=== PATIENT | female | born 1995 | race Caucasian/White ===

== ENCOUNTER 2025-05-30 21:44 | Emergency (ER) | payer MEDICAID, SELFPAY ==
--- NOTE | ~2025-05-30 | XR_ITS ---
CLINICAL HISTORY: fall 3 view right ankle Comparison: None provided Findings: No acute fractures. Ankle mortise intact. Moderate lateral soft tissue swelling. No ankle effusion. No radiopaque foreign body. IMPRESSION: 1. Lateral soft tissue swelling. No acute osseous abnormality. This document has been electronically signed by: Tee Oliver MD, PHD on 05/31/2025 00:06:57
[2025-05-30 21:47] VITALS: BP 143/68; PULSE 98; RESP 20; TEMP 37.1; O2SAT 98; BMI 29.7
--- NOTE | 2025-05-30 21:54 | PC.NURSE ---
this rn spoke with MD Butler, verbal order for ankle xray placed at this time, pt agreeable to plan of care at this time.
--- OUTSIDE RECORDS SUMMARY | 2025-05-30 22:43 | XMS_ITS | Clinical Summary ---
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 Oversize Load Pilot Escort: Leroy Bender MD METAL FURNITURE ASSEMBLY SUPERVISOR Cytology Report FINAL DIAGNOSIS A. PAP SMEAR (THIN PREP) CE: SPECIMEN ADEQUACY: Satisfactory for evaluation; transformation zone absent/insufficient. INTERPRETATION: NEGATIVE FOR INTRAEPITHELIAL LESION OR MALIGNANCY. This specimen was analyzed by the automated ThinPrep Imaging System ([employer] and the selected henry were reviewed by a director of instructional technology. Electronically Signed Out By: BIRD Costello(ASCP) The Pap test is a screening test primarily for squamous cancers and precursors and has associated false-negative and false-positive results. New technologies such as liquid-based preparations may decrease but will not eliminate all false-negative results. Regular sampling and follow-up of unexplained clinical signs and symptoms are recommended to minimize false negative results. PROCEDURES/ADDENDA HPV Testing (Requested) Ordered Date: 04/19/2025 A. PAP SMEAR (THIN PREP) CE: High-risk HPV Panel w/ extended genotyping NEG HPV 16-NEG HPV 18-NEG HPV 45-NEG HPV 33/58-NEG HPV 31-NEG HPV 56/59/66-NEG HPV 51-NEG HPV 52-NEG HPV 35/39/68-NEG Performed by real-time polymerase chain reaction (PCR) at [address] using the FDA-approved BD Onclarity HPV Assay with extended genotyping. Uses of the assay in scenarios other than those approved by the FDA should be considered off-label use. The accuracy and precision of this test for all other off-label specimen sources has been verified in the Cytopathology Laboratory of the [facility] and has not been cleared or approved by the U.S. Food and Drug Administration. Clinical correlation is advised. The assay assesses the E6/E7 DNA target and utilizes human beta globin as an internal control. Cytology and HPV testing are screening assays and should not be used as the sole means of detecting cancer. False-positives and false-negatives can occur. CLINICAL HISTORY Date of Last Menstrual Period: Not Provided Menstrual History: Infection History: Viktoria: 2021 Other Clinical Conditions: Screening Pap SPECIMEN SOURCE A: PAP SMEAR (THIN PREP) CE Patient Name: MELODY EVANS : 1995 (Age: 29) Sex: F Institution: [facility] Location: [facility] Date of Collection: 04/18/2025 Date of Reported: 04/25/2025 10:32 Results to: Sabiha Cohen CNM us Sabiha Cohen CNM CYTOLOGY ORDERABLES Final Resul t Performing Organization Address City/[facility] Co de Phone Number SEE NARRATIVE * Screen (03/21/2025 1:40 PM EDT) ABO/Rh A Negative [facility] Antibody Screen Negative [facility] Resulting Agency [facility] Blood 03/21/2025 1:40 PM EDT 03/21/2025 1:53 PM EDT Laurita Blake CNM BLOOD BANK TEST ORD ERABLES Final Result Performing Organization Address [facility] de Phone Number [address] [address] * (ABNORMAL) Rubella antibody, IgG (03/21/2025 1:40 PM EDT) Rubella Ab, IgG Negative(A ) Positive [facility] Blood (Blood) 03/21/2025 1:4 0 PM EDT 03/21/2025 1:53 PM EDT Laurita Blake CNM NON CULTURE MICROBI OLOGY Final Result Performing Organization Address [facility] Co de Phone Number [address] [address] * (ABNORMAL) Varicella-zoster (VZV) antibody, IgG (03/21/2025 1:40 PM EDT) Varicella Ab(s) Negative(A ) Positive [facility] Blood (Blood) 03/21/2025 1:4 0 PM EDT 03/21/2025 1:53 PM EDT Laurita SWANSON NON CULTURE MICROBI OLOGY Final Result Performing Organization Address City/[facility]/ZIP Co de Phone Number [address] [address] * HIV-1/2 antigen/antibody (03/21/2025 1:40 PM EDT) Pathologist [facility] HIV-1/2 Antigen/Antibo dy NON-REACTI VE NON-REACTI VE [facility] Blood 03/21/2025 1:40 PM EDT 03/21/2025 1:53 PM EDT Laurita Blake CNM LAB BLOOD ORDERABLE S Final Result Performing Organization Address [facility]/ZIP Co de Phone Number [address] [address] * Hepatitis C antibody, qualitative (03/21/2025 1:40 PM EDT) HCV NON-REACTIV E NON-REACTI VE [facility] Blood 03/21/2025 1:40 PM EDT 03/21/2025 1:53 PM EDT Laurita Blake CNM LAB BLOOD ORDERABLE S Final Result Performing Organization Address [facility]/ZIP Co de Phone Number [address] [address] * Syphilis antibody screen (03/21/2025 1:40 PM EDT) RPR NON-REACTIV E NON-REACTI VE [facility] Blood 03/21/2025 1:40 PM EDT 03/21/2025 1:53 PM EDT Laurita Makedanoemy Blake [facility] [facility] [employer] LAB BLOOD ORDERABLE S Final Result [address] [address] * Hepatitis B surface antigen (03/21/2025 1:40 PM EDT) HBV SURFACE ANTIGEN NON-REACTI VE NON-REACTI VE [facility] Blood 03/21/2025 1:40 PM EDT 03/21/2025 1:53 PM EDT Laurita Makeda Blake [facility] LAB BLOOD ORDERABLE S Final Result Performing Organization Address City/[facility]/ZIP Co de Phone Number [address] [address] * CBC (03/21/2025 1:40 PM EDT) WBC 5.47 4.00 - 11.00 K/uL [facility] RBC 4.49 4.00 - 5.20 M/uL [facility] HGB 13.4 12.0 - 16.0 g/dL [facility] HCT 39.6 36.0 - 46.0 % [facility] PLT 171 150 - 450 K/uL [facility] MCV 88.2 80.0 - 100.0 [facility] MCH 29.8 27.0 - 31.0 pg [facility] MCHC 33.8 32.0 - 36.0 g/dL [facility] RDW 12.9 11.5 - 14.5 % [facility] MPV 10.4 8.4 - 12.0 fL [facility] NRBC 0.00 0.00 /100 WBCs [facility] ABSOLUTE NRBC 0.00 0.00 K/uL [facility] Blood 03/21/2025 1:40 PM EDT 03/21/2025 1:53 PM EDT us Laurita SWANSON LAB BLOOD ORDERABLE S Final Result Performing Organization Address City/[facility]/ZIP Co de Phone Number [address] [address] * LFTs (hepatic panel) (03/17/2025 8:06 PM EDT) ALKALINE PHOSPHATASE 51 39 - 117 U/L [facility] TOTAL BILIRUBIN 0.9 0.0 - 1.2 mg/dL [facility] DIRECT BILIRUBIN 0.2 0.0 - 0.2 mg/dL [facility] Bilirubin (Indirect) 0.7 0 - 1.5 mg/dL [facility] AST 16 0 - 37 U/L [facility] ALT 29 0 - 40 U/L [facility] TOTAL PROTEIN 6.9 6.5 - 8.0 g/dL [facility] ALBUMIN 4.2 3.9 - 4.8 g/dL [facility] GLOBULIN 2.7 1 - 4.8 g/dL [facility] A/G Ratio 1.56 1.00 - 4.80 RATIO [facility] Blood 03/17/2025 8:06 PM EDT 03/17/2025 8:10 PM EDT us Tim Juárez MD LAB BLOOD ORDERAB LES Final Result Performing Organization Address City/[facility]/ZIP Co de Phone Number [address] [address] * (ABNORMAL) CBC and differential (03/17/2025 8:06 PM EDT) WBC 9.28 4.00 - 11.00 K/uL [facility] RBC 4.57 4.00 - 5.20 M/uL [facility] HGB 13.6 12.0 - 16.0 g/dL [facility] HCT 40.1 36.0 - 46.0 % [facility] PLT 182 150 - 450 K/uL [facility] MCV 87.7 80.0 - 100.0 fL [facility] MCH 29.8 27.0 - 31.0 pg [facility] MCHC 33.9 32.0 - 36.0 g/dL [facility] RDW 12.9 11.5 - 14.5 % [facility] MPV 10.1 8.4 - 12.0 [facility] NRBC 0.00 0.00 /100 WBCs [facility] ABSOLUTE NRBC 0.00 0.00 K/uL [facility] DIFF METHOD Auto [facility] NEUTS 80.9(H) 48.0 - 76.0 % [facility] LYMPHS 14.4(L) 18.0 - 41.0 % [facility] MONOS 4.1 4.0 - 11.0 % [facility] EOS 0.1 0.0 - 5.0 % [facility] BASOS 0.3 0.0 - 1.5 % [facility] Granulocytes, immature (%) 0.2 0.0 - 0.9 % [facility] ABSOLUTE NEUTS 7.50 1.92 - 7.60 K/uL [facility] ABSOLUTE LYMPHS 1.34 0.72 - 4.10 K/uL [facility] ABSOLUTE MONOS 0.38 0.16 - 1.10 K/uL [facility] ABSOLUTE EOS 0.01 0.00 - 0.50 K/uL [facility] ABSOLUTE BASOS 0.03 0.00 - 0.15 K/uL [facility] Granulocytes, immature 0.02 0.00 - 0.09 K/uL [facility] Blood 03/17/2025 8:06 PM EDT 03/17/2025 8:10 PM EDT us Tim Juárez MD LAB BLOOD ORDERAB LES Final Result [facility] [address] [place] [address] * (ABNORMAL) Basic metabolic panel (03/17/2025 8:06 PM EDT) SODIUM 134 133 - 146 mmol/L [facility] CHLORIDE 102 96 - 108 mmol/L [facility] POTASSIUM 3.9 3.3 - 5.1 mmol/L [facility] Comment:Specimen slightly he molyzed, result may be falsely elevated. CO2 21 21 - 35 mmol/L [facility] BUN 6 6 - 19 mg/dL [facility] CREATININE 0.40(L) 0.5 - 1.5 mg/dL [facility] GLUCOSE 109(H) 70 - 99 mg/dL [facility] CALCIUM 9.5 8.4 - 10.3 mg/dL [facility] EGFR >120 >59 mL/min/1.7 3m2 [facility] Comment:Estimated glomerular filtration rate calculated using the CKD-EPI refit equation. ANION GAP 15 10 - 20 mmol/L [facility] Blood 03/17/2025 8:06 PM EDT 03/17/2025 8:10 PM EDT Tim Juárez MD LAB BLOOD ORDERAB LES Final Result Performing Organization Address [facility]/ZIP Co de Phone Number [address] [address] * (ABNORMAL) Urinalysis w/reflex Urine Culture (03/17/2025 7:25 PM EDT) COLOR Yellow Yellow [facility] CLARITY Clear [facility] GLUCOSE Negative Negative [facility] BILI Negative Negative [facility] KETONES Trace(A) Negative [facility] SPECIFIC GRAVITY 1.010 1.005 - 1.030 [facility] BLOOD Negative Negative [facility] PH 7.0 5.0 - 8.0 [facility] Protein-UA Negative Negative [facility] NITRITE Negative Negative [facility] Leukocyte esterase, ur Negative Negative [facility] Urine (Urine) 03/17/2025 7:2 5 PM EDT 03/17/2025 7:28 PM EDT Tim Juárez MD URINE ORDERABLES Final Result Performing Organization Address [facility]/ZIP Co de Phone Number [address] [address] * (ABNORMAL) HCG, urine (03/17/2025 7:25 PM EDT) URINE TEST Positive(A ) Negative [facility] Urine (Urine) 03/17/2025 7:2 5 PM EDT 03/17/2025 7:28 PM EDT Tim Juárez MD URINE ORDERABLES Final Result [facility] [address] [place] [address] * ECG 12-LEAD (03/17/2025 5:02 PM EDT) Ventricular Rate EKG/MIN 66 BPM [facility] Atrial Rate 66 BPM [facility] PA Interval 120 ms [facility] QRS Duration 96 ms [facility] QT Interval 424 ms [facility] QTC Interval 444 ms [facility] P [place] 34 degrees [facility] R Wave [place] 18 degrees [facility] T Wave [place] 5 degrees [facility] 03/17/2025 5:02 PM EDT 03/18/2025 10:08 AM EDT Narrative [facility] - 03/18/2025 10:08 AM EDT Normal sinus rhythm with sinus arrhythmia Low voltage QRS Cannot rule out Anterior infarct , age undetermined Abnormal ECG When compared with ECG of 16-Jul-2023 19:58, T wave inversion now evident in Inferior leads Nonspecific T wave abnormality no longer evident in Anterior leads Confirmed by Edgar Schultz ([id number]) on 03/18/2025 10:08:42 AM us Tim Juárez MD ECG ORDERABLES F inal Result [facility] * Chlamydia trachomatis and Neisseria gonorrhoeae Nucleic Acid Amplification (03/07/2025 11:17 AM EDT) CHLAMYDIA TRACHOMATIS Not Detected Not Detected [facility] NEISERIA GONORRHOEAE Not Detected Not Detected [facility] SPECIMEN TYPE URINE [facility] Urine (Urine) 03/07/2025 11: 17 AM EDT 03/07/2025 3:13 PM EDT us Laurita Ashford Blake CNM NON CULTURE MICROBI OLOGY Final Result [facility] [address] [place] [address] * US OB LESS THAN 14 WEEKS TRANSABDOMINAL (03/07/2025 10:28 AM EDT) Anatomical Region Laterality Modality Abdomen, Pelvis, Uterus/Adnexa U ltrasound 03/07/2025 10:2 9 AM EDT Impressions 03/07/2025 8:13 PM EDT 1. This is a Di/Di twin with CRL measurements consistent with menstrual dating. 2. There is a 4.5 cm right fundal fibroid. 3. The ovaries appear grossly normal. Narrative 03/07/2025 8:13 PM EDT Procedure: US OB LESS THAN 14 WEEKS TRANSABDOMINAL 03/07/2025 10:15 AM US Indications: dating / viability. Comparison: No relevant recent comparisons. Maternal age: 29 years. Technique: Transabdominal scan was performed. Color Doppler and M-mode imaging was performed to assess vascularity. FINDINGS: Type of twin : Dichorionic Diamniotic Twins Reported LMP: Approx 01/09/2025 Fetus 1: FHR: 156.0 bpm CRL: 1.19 cm Gestational Age by LMP: 8 weeks 1 day(s) Ultrasound EGA: 7 weeks 3 day(s) Ultrasound MARY: [id number] Established MARY: [id number] Fetus 2: FHR: 152.0bpm CRL: 1.25 cm Gestational Age by LMP: 8 weeks 1 day(s) Ultrasound EGA: 7 weeks 3 day(s) Ultrasound MARY: [id number] Established MARY: [id number] Overies: Rt Ovary: Appears grossly normal. Adnexa: No masses seen. Lt. Ovary: Appears grossly normal. Adnexa: No masses seen. Tech Comments: Live twin dating 7w 3d. Gest sac A subjectively smaller than B. CRL and FHR wnl x2. Fundal right fibroid 4.5 x 3.2 x 3.8 cm. Procedure Note Miguel Ángel Henao MD - 03/07/2025 Procedure: US OB LESS THAN 14 WEEKS TRANSABDOMINAL 03/07/2025 10:15 AM US Indications: dating / viability. Comparison: No relevant recent comparisons. Maternal age: 29 years. Technique: Transabdominal scan was performed. Color Doppler and M-modeimaging was performed to assess vascularity. FINDINGS: Type of twin : Dichorionic Diamniotic Twins Reported LMP: Approx 01/09/2025 Fetus 1: FHR: 156.0 bpm CRL: 1.19 cm Gestational Age by LMP: 8 weeks 1 day(s) Ultrasound EGA: 7 weeks 3 day(s) Ultrasound MARY: [id number] Established MARY: [id number] Fetus 2: FHR: 152.0bpm CRL: 1.25 cm Gestational Age by LMP: 8 weeks 1 day(s) Ultrasound EGA: 7 weeks 3 day(s) Ultrasound MARY: [id number] Established MARY: [id number] Overies: Rt Ovary: Appears grossly normal. Adnexa: No masses seen. Lt. Ovary: Appears grossly normal. Adnexa: No masses seen. Tech Comments: Live twin dating 7w 3d. Gest sac A subjectively smaller than B.CRL and FHR wnl x2. Fundal right fibroid 4.5 x 3.2 x 3.8 cm. IMPRESSION: 1. This is a Di/Di twin with CRL measurements consistent withmenstrual dating. 2. There is a 4.5 cm right fundal fibroid. 3. The ovaries appear grossly normal. Laurita SWANSON IMG US OBSTETRIC Fi nal Result from Last 3 Months Insurance ACO P ACO ACO ACO ACO Advance Directives For more information, please contact: [phone] (9AM - 5PM [facility], Wednesday-Wednesday) Documents on File Type Date Recorded Patient Computer Repair Engineer Expl anation Healthcare Proxy 11/22/2019 11:58 AM * Full Code (Presumed) (Latest Code Status on File) Date Activated Date Inactivated Comments 11/18/2019 10:42 PM 11/20/2019 11:59 PM * Full Code (Presumed) Date Activated Date Inactivated Comments 11/17/2019 8:45 PM 11/18/2019 10:42 PM Care Teams Fine Grade Bulldozer Operator Relationship Specialty Start Date End Date Marvel Roach PA [address] [place] [phone] [email or web address] PCP - General Physician International Representative 07/16/23 Additional Source Comments The information contained in this document represents components of the legal health record. It is not the complete legal health record.[facility]
--- OUTSIDE RECORDS SUMMARY | 2025-05-30 22:43 | XMS_ITS | Encounter Summary ---
Author Organization [facility] Address [address] [place] [address] Phone Care Team Providers Care Plasterer Apprentice Name Role Phone Unknown, Unknown Primary Care Provider Dillon Becker Primary Care Provider [phone] Mike Graham MD Unavailable [phone] Dm Limon MD Unavailable [phone] Mahendra Hwang MD Unavailable [phone] Ayla Richey MD Unavailable [phone] Marvel Roach Primary Care Provider [phone] Encounter Details Date Type Department Care Team (Latest Contact Info) Description 05/19/2019 Transcribe Orders Virtual Department [address] [place] [phone] Ismael Paulino MD [address] [place] [address], [address] [place], [place] [phone] [email or web address] Visual loss (Primary Dx); Migraine without status migrainosus, not intractable, unspecified migraine type Social History Tobacco Use Types Packs/Day Years Used Date Smoking Tobacco: Never Smokeless Tobacco: Never Alcohol Use Standard Drinks/Week Comments Not Currently 0 (1 standard drink = 0.6 oz pur e alcohol) Comments Unknown Sex and Gender Information Value Date Recorded Sex Assigned at Female 04/12/2019 6:30 PM EDT Legal Sex Female 8:56 PM EDT Gender Identity Female 04/12/2019 6:30 PM EDT Sexual Orientation Straight 04/12/2019 6: 30 PM EDT documented as of this encounter Plan of Treatment Upcoming Encounters Date Type Department Care Team (Late st Contact Info) Description 06/11/2025 1:30 PM EDT Appointment [facility], Mfm Ultrasound - [address] [address] Sabiha Cohen, [address] [address] [email or web address] 06/11/2025 3:30 PM EDT Routine [facility] [address] [place] [phone] Sabiha Petersen, [address] [address] [email or web address] documented as of this encounter Visit Diagnoses Diagnosis Visual loss- Primary Unspecified visual loss Migraine without status migrainosus, not intractable, unspecified migraine type documented in this encounter Additional Health Concerns Infection Onset Date Last Indicated Resolved Time CoV-Risk 05/02/2021 05/06/2021 05/12/2021 1:25 AM EDT documented as of this encounter Care Teams Plasterer Apprentice Relationship Specialty Start Date End Date Unknown, Unknown, PCP - General 04/12/19 06/05/19 Dillon Jackson PA [address] [place] [phone] [email or web address] [email or web address] - General Unknown Provider Specialty 06/06/19 07/15/23 Marvel Roach PA [address] [place] [phone] [email or web address] PCP - General Physician Instrument Engineer 07/16/23 Mike Graham MD [address] [place] [address] [email or web address] Insurance Assigned Provider 09/02/19 03/02/20 Dm Limon MD [address] [place] [id number] [email or web address] Insurance Assigned Provider 03/02/20 08/02/21 Mahendra Hwang MD [address] [place] [address] [email or web address] Insurance Assigned Provider 08/02/21 11/02/21 Ayla Richey MD [address] [place] [phone] [email or web address] Insurance Assigned Provider 11/02/21 06/05/23 documented as of this encounter Additional Source Comments The information contained in this document represents components of the legal health record. It is not the complete legal health record.[facility]
--- OUTSIDE RECORDS SUMMARY | 2025-05-30 22:43 | XMS_ITS | Encounter Summary ---
Author Organization [facility] Address [address] [facility] [address] [place] [address] Phone Care Team Providers Care Magazine Supervisor Name Role Phone Dillon Jackson Primary Care Provider [phone] Mike Graham MD Unavailable [phone] Dm Limon MD Unavailable [phone] Mahendra Hwang MD Unavailable [phone] Ayla Richey MD Unavailable Marvel Roach Primary Care Provider [phone] Encounter Details Date Type Department Care Team (Late st Contact Info) Description 06/13/2019 Ancillary Orders [facility] [address] [place] [address] Terrie Mcfarland CNM [email or web address] Date of last menstrual period (LMP) unknown Social History Tobacco Use Types Packs/Day Years Used Date Smoking Tobacco: Never Smokeless Tobacco: Never Alcohol Use Standard Drinks/Week Comments Not Currently 0 (1 standard drink = 0.6 oz pur e alcohol) Comments Yes Sex and Gender Information Value Date Recorded Sex Assigned at Female 04/12/2019 6:30 PM EDT Legal Sex Female 8:56 PM EDT Gender Identity Female 04/12/2019 6:30 PM EDT Sexual Orientation Straight 04/12/2019 6: 30 PM EDT documented as of this encounter Plan of Treatment Upcoming Encounters Date Type Department Care Team (Late st Contact Info) Description 06/11/2025 1:30 PM EDT Appointment [facility], m Ultrasound - [address] [address] Sabiha Cohen, [address], [address] [place] [address] 06/11/2025 3:30 PM EDT Routine [facility] [address] [place] [address] Sabiha Petersen CN [address] [facility], [address] [place] [address] [email or web address] documented as of this encounter Results * US OB GREATER THAN OR EQUAL TO 14 WEEKS LIMITED (06/13/2019 4:04 PM EDT) Anatomical Region Laterality Modality Abdomen, Pelvis, Uterus/Adnexa O B Ultrasound 06/13/2019 4:10 PM EDT Impressions 06/13/2019 8:41 PM EDT Single live IUP with biometric measurements consistent with 15w5d and an MARY of November 30, 2019. Narrative 06/13/2019 8:41 PM EDT INDICATION: Dating, Irregular menses DATING: Exam Date: 2019-06-13 Last Menstruation: 2019-03-15 Estimated Delivery Date: 2019-12-20 Ultrasound Age: 15w5d Gestational Age by LMP: 12w6d Estimated Delivery by Ultrasound Age: 2019-11-30 ANATOMY SCAN: Biparietal Diameter: 3.19 cm 16w0d Hadlock Head Circumference: 11.81 cm 15w6d Hadlock Abdominal Circumference: 9.26 cm 15w3d Hadlock Femur Length: 1.62 cm 14w6d Hadlock Cerebellum: 1.45 cm 15w6d HC/AC Ratio: 1.28 FL/BPD Ratio: 51% FL/AC Ratio: 17% Estimated Weight: 4 oz Hadlock Heart Activity: Present Heart Rate: 147 bpm Presentation: Variable Amniotic Fluid: Normal Placenta: Posterior Placental Grade: 0 ANATOMY: Cerebellum: Seen Cisterna Magna: Seen Face: Seen Orbits/Lenses: Seen Profile: Seen Spine: Seen Stomach: Seen Cord Insertion: Seen Diaphragm: Seen Bladder: Seen 4 Chamber Heart: Limited Lower Extremities: Limited Upper Extremities: Limited Gender: Male MATERNAL STRUCTURES: Cervical Length: 3.24 cm TECH COMMENTS: Single live IUP. Size of fetus is approximately 3 weeks greater than dates by LMP. Active fetus with normal fluid. Grossly normal appearing ovaries bilaterally with no adnexal masses seen. Transabdominal scanning was performed. Procedure Note Miguel Ángel Henao MD - 06/13/2019 INDICATION: Dating, Irregular menses DATING: Exam Date: 2019-06-13 Last Menstruation: 2019-03-15 Estimated Delivery Date: 2019-12-20 Ultrasound Age: 15w5d Gestational Age by LMP: 12w6d Estimated Delivery by Ultrasound Age: 2019-11-30 ANATOMY SCAN: Biparietal Diameter: 3.19 cm 16w0d Hadlock Head Circumference: 11.81 cm 15w6d Hadlock Abdominal Circumference: 9.26 cm 15w3d Hadlock Femur Length: 1.62 cm 14w6d Hadlock Cerebellum: 1.45 cm 15w6d HC/AC Ratio: 1.28 FL/BPD Ratio: 51% FL/AC Ratio: 17% Estimated Weight: 4 oz Hadlock Heart Activity: Present Heart Rate: 147 bpm Presentation: Variable Amniotic Fluid: Normal Placenta: Posterior Placental Grade: 0 ANATOMY: Cerebellum: Seen Cisterna Magna: Seen Face: Seen Orbits/Lenses: Seen Profile: Seen Spine: Seen Stomach: Seen Cord Insertion: Seen Diaphragm: Seen Bladder: Seen 4 Chamber Heart: Limited Lower Extremities: Limited Upper Extremities: Limited Gender: Male MATERNAL STRUCTURES: Cervical Length: 3.24 cm TECH COMMENTS: Single live IUP. Size of fetus is approximately 3 weeks greater than datesby LMP. Active fetus with normal fluid. Grossly normal appearing ovariesbilaterally with no adnexal masses seen. Transabdominal scanning was performed. IMPRESSION: Single live IUP with biometric measurements consistent with 15w5d and anEDD of November 30, 2019. us Terrie Mcfarland CN IMG US OBSTETRIC Final Resul t documented in this encounter Visit Diagnoses Diagnosis Date of last menstrual period (LMP) unknown Date of last menstrual period (LMP) unknown documented in this encounter Additional Health Concerns Infection Onset Date Last Indicated Resolved Time CoV-Risk 05/02/2021 05/06/2021 05/12/2021 1:25 AM EDT documented as of this encounter Care Teams Magazine Supervisor Relationship Specialty Start Date End Date Dillon Jackson PA [address] [facility] [address] [place] [phone] [email or web address] - General Unknown Provider Specialty 06/06/19 07/15/23 Marvel Roach PA [address] [place] [phone] [email or web address] - General Physician Electric Dolly Operator 07/16/23 Mike Graham MD [address] [place] [address] [email or web address] Insurance Assigned Provider 09/02/19 03/02/20 Dm Limon MD [address] [place] [address] [email or web address] Insurance Assigned Provider 03/02/20 08/02/21 Mahendra Hwang MD [address] [place] [address] [email or web address] Insurance Assigned Provider 08/02/21 11/02/21 Ayla Richey MD [address] [place] [address] [email or web address] Insurance Assigned Provider 11/02/21 06/05/23 documented as of this encounter Additional Source Comments The information contained in this document represents components of the legal health record. It is not the complete legal health record.[facility]
--- OUTSIDE RECORDS SUMMARY | 2025-05-30 22:43 | XMS_ITS | Encounter Summary ---
Author Organization [facility] Address [address] [facility] [address] [place] [address] Phone Care Team Providers Care Station Supervisor Name Role Phone Dillon Jackson Primary Care Provider [phone] Dm Limon MD Unavailable [phone] Mahendra Hwang MD Unavailable [phone] Ayla Richey MD Unavailable [phone] Marvel Roach Primary Care Provider [phone] Encounter Details Date Type Department Care Team (Late st Contact Info) Description 05/03/2020 Procedure Pass [address] [place] [address] Social History Tobacco Use Types Packs/Day Years Used Date Smoking Tobacco: Never Smokeless Tobacco: Never Alcohol Use Standard Drinks/Week Comments Not Currently 0 (1 standard drink = 0.6 oz pur e alcohol) Comments No Sex and Gender Information Value Date Recorded Sex Assigned at Female 04/12/2019 6:30 PM EDT Legal Sex Female 8:56 PM EDT Gender Identity Female 04/12/2019 6:30 PM EDT Sexual Orientation Straight 04/12/2019 6: 30 PM EDT documented as of this encounter Plan of Treatment Upcoming Encounters Date Type Department Care Team (Late st Contact Info) Description 06/11/2025 1:30 PM EDT Appointment [facility], [address] [address] Sabiha Cohen, CN [address] [facility], [address] [place] [address] [email or web address] 06/11/2025 3:30 PM EDT Routine [facility] [address] [place] [address] Sabiha Petersen CN [address] [facility], [address] [address] [email or web address] documented as of this encounter Visit Diagnoses Not on filedocumented in this encounter Additional Health Concerns Infection Onset Date Last Indicated Resolved Time CoV-Risk 05/02/2021 05/06/2021 05/12/2021 1:25 AM EDT documented as of this encounter Care Teams Station Supervisor Relationship Specialty Start Date End Date Dillon Jackson PA [address] [place] [phone] [email or web address] - General Unknown Provider Specialty 06/06/19 07/15/23 Marvel Roach PA [address] [place] [phone] [email or web address] - General Physician Cable Television Program Director 07/16/23 Dm Limon MD [address] [place] [phone] [email or web address] Insurance Assigned Provider 03/02/20 08/02/21 Mahendra Hwang MD [address] [place] [address] [email or web address] Insurance Assigned Provider 08/02/21 11/02/21 Ayla Richey MD [facility] [place] [address] [email or web address] Assigned Provider 11/02/21 06/05/23 documented as of this encounter Additional Source Comments The information contained in this document represents components of the legal health record. It is not the complete legal health record.[facility]
--- OUTSIDE RECORDS SUMMARY | 2025-05-30 22:43 | XMS_ITS | Encounter Summary ---
Author Organization [facility] Address [address] [facility] [address] [place] [address] Phone Care Team Providers Care Information Technology Consultant Name Role Phone Dillon Jackson Primary Care Provider [phone] Dm Limon MD Unavailable [phone] Mahendra Hwang MD Unavailable [phone] Ayla Richey MD Unavailable Marvel Roach Primary Care Provider [phone] Reason for Referral * MRI/CAT Scan - Closed Specialty Diagnoses / Procedures Referred By Eric vasquez Referred To Contact Radiology Diagnoses Visual loss Migraine without status migrainosus, not intractable, unspecified migraine type Procedures MRI Brain Ismael Paulino MD Phone: tel: fax: [email or web address] Referral ID Status Reason Start Date Expiration Date Visits Re quested Visits Authorized [id number] Closed 04/16/2020 10/12/2020 1 1 Encounter Details Date Type Department Care Team (Latest Contact Info) Description 05/03/2020 Transcribe Orders Virtual Department [address] [place] [address] Ismael Paulino MD [address] [facility] [place] [address] [email or web address] Visual loss (Primary Dx); Migraine without [...] 1:30 PM EDT Appointment [facility], [address] [address] Sabiha Cohen [address] [address] [email or web address] 06/11/2025 3:30 PM EDT Routine [facility] Midwifery [address] [place] [address] Sabiha Petersen CNM [address] [place] [phone] [email or web address] documented as of this encounter Results * MRI BRAIN WITHOUT CONTRAST (05/13/2020 4:33 PM EDT) Anatomical Region Laterality Modality Head Magnetic Resonan ce 05/13/2020 4:58 PM EDT Impressions 05/13/2020 5:08 PM EDT No significant intracranial abnormalities. POS - [id number] Narrative 05/13/2020 5:08 PM EDT HISTORY: Chronic migraines more frequent on right than left. COMPARISON: None. TECHNIQUE: Exam performed on a 1.5 Elena high field MRI scanner. Sagittal and axial T1, axial FSE T2, T2 FLAIR, diffusion weighted and ADC map sequences were obtained. FINDINGS: No evidence of intracranial hemorrhage, hematoma or suspicious masses. Small negative cisterna magna in the posterior fossa, normal variant. Sanders-white matter differentiation is preserved. No signs of acute infarction. No suspicious white matter signal abnormalities. The ventricles are midline and do not appear dilated. The basal cisterns are patent. There are normal flow voids at the base of the skull. Visualized paranasal sinuses are essentially clear. Procedure Note Cecilio Garcia MD - 05/13/2020 HISTORY: Chronic migraines more frequent on right than left. COMPARISON: None. TECHNIQUE: Exam performed on a 1.5 Elena high field MRI scanner. Sagittaland axial T1, axial FSE T2, T2 FLAIR, diffusion weighted and ADC mapsequences were obtained. FINDINGS: No evidence of intracranial hemorrhage, hematoma or suspicious masses.Small negative cisterna magna in the posterior fossa, normal variant.Sanders-white matter differentiation is preserved. No signs of acuteinfarction. No suspicious white matter signal abnormalities. The ventricles are midline and do not appear dilated. The basal cisternsare patent. There are normal flow voids at the base of the skull. Visualized paranasal sinuses are essentially clear. IMPRESSION: No significant intracranial abnormalities. POS - [id number] Ismael Paulino MD IMG MR HEAD/NECK Final Resul t documented in this encounter Visit Diagnoses Diagnosis Visual loss- Primary Unspecified visual loss Migraine without status migrainosus, not intractable, unspecified migraine type Visual loss Unspecified visual loss Migraine without status migrainosus, not intractable, unspecified migraine type documented in this encounter Additional Health Concerns Infection Onset Date Last Indicated Resolved Time CoV-Risk 05/02/2021 05/06/2021 05/12/2021 1:25 AM EDT documented as of this encounter Care Teams Information Technology Consultant Relationship Specialty Start Date End Date Dillon Jackson PA [address] [place] [address] [email or web address] - General Unknown Provider Specialty 06/06/19 07/15/23 Marvel Roach PA [address] [place] [phone] [email or web address] - General Physician Machine Maintenance Mechanic 07/16/23 Dm Limon MD [address] [place] [phone] [email or web address] Insurance Assigned Provider 03/02/20 08/02/21 Mahendra Hwang MD [address] [place] [phone] [email or web address] Insurance Assigned Provider 08/02/21 11/02/21 Ayla Richey MD [address] [place] [phone] Insurance Assigned Provider 11/02/21 06/05/23 documented as of this encounter Additional Source Comments The information contained in this document represents components of the legal health record. It is not the complete legal health record.[facility]
--- NOTE | 2025-05-30 23:14 | ED_ITS ---
HPI - General Adult General Chief complaint: Extremity Injury, Lower Stated complaint: rt ankle swelling/bruising Time Seen by Provider: 05/30/25 22:35 Source: patient, RN notes reviewed and old records reviewed Mode of arrival: ambulatory Limitations: no limitations History of Present Illness ED Provider: Rossy HPI narrative: 29-year-old female presents for evaluation of right ankle pain. She reports a fall last week when she tripped over the sidewalk while walking her dogs. She injured the right lateral ankle. Denies any calf pain or swelling. Denies any knee pain. She reports that she is 19 weeks with twins. She is denies any abdominal pain Related Data Allergies Allergy/AdvReac Type Severity Reaction Status Date / Time No Known Allergies Allergy Verified 05/30/25 21:51 Review of Systems Constitutional: Constitutional: Denies body ache(s), Denies chills and Denies fever(s) Eyes: Eyes: Denies blurry vision ENT: Denies dizziness and Denies dry mouth Cardiovascular: Cardiovascular: Denies chest pain and Denies dyspnea on exertion Respiratory: Respiratory: Denies cough and Denies dyspnea on exertion Gastrointestinal: Gastrointestinal: Denies abdominal pain, Denies nausea and Denies vomiting Musculoskeletal: Musculoskeletal: Denies back pain, Reports arthralgias, Reports joint swelling and Reports limited range of motion Integumentary/Breasts: Skin/Breast: Denies erythema and Denies wounds Neurologic: Denies dizziness PMFSH Social History Social History Advance Directives: No Advance Directives Information Provided: Yes Do you have a plan to hurt others: No Plan Physical Exam ED Vital Signs: Vital Signs - 24 hr 05/30/25 21:47 05/30/25 23:15 Temperature 98.7 F Pulse Rate 98 74 Respiratory Rate 20 18 Blood Pressure 143/68 H 115/71 Pulse Oximetry 98 99 Oxygen Delivery Method Room Air Room Air BMI result Body Mass Index 29.7 Extrem Other: There was moderate right lateral ankle ecchymosis with tenderness over the right lateral malleolus. There was no tenderness over the Achilles region. No calf tenderness. Medical Decision Making Medical Decision Making [facility] Narrative: 29-year-old female presents for evaluation of right ankle pain after a fall that happened 1 week ago. She has moderate edema and ecchymosis to the right lateral ankle with tenderness on exam. Achilles tenderness is palpable and intact. There was no medial malleolus tenderness. Given her continued pain, swelling we will shield her abdomen and pelvis and get an x-ray of the right ankle. Differential Diagnosis Differential Diagnoses: The differential diagnosis associated with the presentation includes Ankle sprain Contusion Fracture Dislocation Independent Interpretation I performed an independent interpretation of an: Plain X-Ray Interpretation: no obvious fracture of the right ankle Discharge Plan Discharge Clinical Impression: Ankle sprain and strain Patient Disposition: Home, Self-Care Instructions: Ankle Sprain (ED) Additional Instructions: Your x-ray does not show any obvious fractures. You may use Tylenol as needed for pain. Elevate the leg above your heart while resting. You may use ice every 4 hours for 10-15 minutes. Follow up with your primary doctor, return for new or worsening symptoms Print Language: Irish
[2025-05-30 23:15] VITALS: BP 115/71; PULSE 74; RESP 18; O2SAT 99
[2025-05-31 00:26] VITALS: BP 115/71; PULSE 74; RESP 18; TEMP 36.7; O2SAT 99
== END 2025-05-31 00:27 | disposition home or self-care (01) ==
PROVIDERS: Emergency Provider Emergency Medicine Emergency Medical Services
DX: O26.92 Pregnancy related conditions, unspecified, second trimester (principal); R60.0 Localized edema; M25.571 Pain in right ankle and joints of right foot; Z3A.19 19 weeks gestation of pregnancy
CPT/HCPCS: 73610; 99283

== ENCOUNTER → 2025-05-30 22:40 | Outpatient (BNV) | payer MEDICAID, SELFPAY | PROVIDERS: Emergency Provider Emergency Medicine Emergency Medical Services; Visit Provider General Practice | DX: R22.41 Localized swelling, mass and lump, right lower limb (principal); W19.XXXA Unspecified fall, initial encounter | CPT/HCPCS: 73610 ==